=== PATIENT | female | born 1955 | race Caucasian/White ===

== ENCOUNTER → 2018-07-13 | Outpatient (CLI) | payer OTHER ==
--- NOTE | 2018-07-14 09:51 | PCVCIMAG ---
APPROVED REPORT Study performed: 07/13/2018 14:23:41 EXAM: Comprehensive 2D, Doppler, and color-flow Echocardiogram Patient Location: Echo lab Room #: 2Status: routine BSA: 1.59 HR: 104 bpmBP: 128/82 mmHg Rhythm: RBBB Other Information Study Quality: Adequate Indications COPD Dyspnea Cardiomegaly 2D Dimensions IVSd: 8.27 (7-11mm)LVOT Diam: 18.77 (18-24mm) LVDd: 56.97 mm PWd: 10.57 (7-11mm)Ascending Ao: 35.05 (22-36mm) LVDs: 52.53 (25-40mm) Left Atrium: 40.73 (27-40mm) Aortic Root: 30.05 mm LV Single Plane 4CH: 10.00 % LV Single Plane 2CH: 15.84 % Biplane EF: 12.0 % Volumes Left Atrial Volume (Systole) Single Plane 4CH: 36.38 mLSingle Plane 2CH: 55.97 mL Biplane LA Volume: 46.00 mLLA ESV Index: 29.00 mL/m2 Aortic Valve AoV Peak Warren.: 1.47 m/s AO Peak Gr.: 8.66 mmHgLVOT Max P.40 mmHg LVOT Max V: 0.59 m/s MIGUELINA Vmax: 1.11 cm2 Mitral Valve E/A Ratio: 0.1 MV Decel. Time: 90.01 ms MV E Max Warren.: 0.22 m/s MV A Warren.: 1.54 m/s IVRT: 36.91 ms Tricuspid Valve TR Peak Warren.: 2.52 m/s TR Peak Gr.: 25.49 mmHg TV Vmax: 0.42 m/sPA Pressure: 33.00 mmHg Left Ventricle Left ventricle is at the upper limits of normal. There is global severe hypokinesis of the left ventricle. There is normal left ventricular wall thickness. There is no ventricular septal defect visualized. Left ventricular ejection fraction is severely decreased. LVEF is 10-15%. The diastolic function is abnormal. Right Ventricle The right ventricle is normal size. The right ventricular systolic function is normal. Atria The left atrium size is normal. The right atrium size is normal. Aortic Valve Aortic valve is trileaflet. The aortic valve is normal in structure. No aortic regurgitation is present. There is no aortic valvular stenosis. Mitral Valve The mitral valve is normal in structure. Mild mitral regurgitation. No evidence of mitral valve stenosis. Tricuspid Valve The tricuspid valve is normal in structure. There is no tricuspid valve regurgitation noted. Pulmonic Valve The pulmonary valve is normal in structure. There is no pulmonic valvular regurgitation. Great Vessels The aortic root is normal in size. The ascending aorta is normal in size. IVC is normal in size and collapses >50% with inspiration. Pericardium There is no pericardial effusion. There is no pleural effusion. <Conclusion> Left ventricle is at the upper limits of normal. There is global severe hypokinesis of the left ventricle. LVEF is 10-15%. Aortic valve is trileaflet. The aortic valve is normal in structure. The mitral valve is normal in structure. Mild mitral regurgitation. The tricuspid valve is normal in structure. The pulmonary valve is normal in structure. There is no pericardial effusion. There is no pleural effusion.
== END | disposition home or self-care (01) ==
LOC: PCVCIMAG 14:14
PROVIDERS: ATTEND Internal Medicine
DX: I34.0 Nonrheumatic mitral (valve) insufficiency (principal); R06.00 Dyspnea, unspecified; I51.7 Cardiomegaly; J44.9 Chronic obstructive pulmonary disease, unspecified
CPT/HCPCS: 93306

== ENCOUNTER → 2019-02-01 | Outpatient (CLI) | payer OTHER ==
--- NOTE | 2019-02-01 14:14 | PCVCIMAG ---
APPROVED REPORT Study performed: 02/01/2019 13:03:52 EXAM: Limited 2D Echocardiogram Patient Location: Echo lab Room #: 3Status: routine BSA: 1.54 HR: 67 bpmBP: 122/80 mmHg Rhythm: NSR Other Information Study Quality: Good Risk Factors: Cardiac Risk Factors: Hyperlipidemia Indications Cardiomyopathy 2D Dimensions IVSd: 9.48 (7-11mm) LVDd: 46.84 mm PWd: 9.30 (7-11mm)Ascending Ao: 30.69 (22-36mm) LVDs: 40.65 (25-40mm) Left Atrium: 33.31 (27-40mm) Aortic Root: 31.12 mm LV Single Plane 4CH: 26.37 % LV Single Plane 2CH: 35.92 % Biplane EF: 33.9 % Volumes Left Atrial Volume (Systole) Single Plane 4CH: 43.82 mLSingle Plane 2CH: 40.95 mL LA ESV Index: 28.00 mL/m2 Tricuspid Valve RAP Estimate: 7.00 mmHg Left Ventricle The left ventricle is normal size. There is global hypokinesis of the left ventricle. There is normal left ventricular wall thickness. Left ventricular systolic function is moderate to severely decreased. LVEF is 30%. Right Ventricle The right ventricle is normal size. The right ventricular systolic function is normal. Atria The left atrium size is normal. The right atrium size is normal. Aortic Valve The aortic valve is normal in structure. Mitral Valve The mitral valve is normal in structure. Mild mitral regurgitation. Tricuspid Valve The tricuspid valve is normal in structure. Pulmonic Valve The pulmonary valve is normal in structure. Great Vessels The aortic root is normal in size. The ascending aorta is normal in size. IVC is normal in size and collapses >50% with inspiration. Pericardium There is no pericardial effusion. <Conclusion> The left ventricle is normal size. LVEF is 30%. There is global hypokinesis of the left ventricle. The aortic valve is normal in structure. The mitral valve is normal in structure. Mild mitral regurgitation. The tricuspid valve is normal in structure. There is no pericardial effusion.
== END | disposition home or self-care (01) ==
LOC: PCVCIMAG 12:59
PROVIDERS: ATTEND Internal Medicine
DX: I34.0 Nonrheumatic mitral (valve) insufficiency (principal); I42.9 Cardiomyopathy, unspecified; E78.5 Hyperlipidemia, unspecified
CPT/HCPCS: 93308